=== PATIENT | male | born 1940 | race Caucasian/White ===

== ENCOUNTER → 2018-09-30 | Outpatient (CLI) | payer OTHER, BC ==
[~2018-09-30] MED LIST: ASPIR 8181 MG PO; BACTRIM DS TAB1 EACH PO; BACTROBAN CREAM30 G1 TOP; CLEOCIN HCL150 MG PO; DOXYCYCLINE 10100 MG PO; FOLIC ACID1 MG PO; LOPRESSOR25 PO; MAGOX 400400 MG PO; NORVASC5 MG PO; PERCOCET PO; PLAVIX 75 MG TA75 M1 PO; PRAVACHOL40 MG PO; PREDNISONE 5 MG5 M1 PO; PROBIOTIC1 EAC4 PO; PROMS25 WY RECTAL; PROTONIX40 M1 PO; SINGULAIR 10 MG10 M1 PO; TACROLIMUS1 MG PO; TUMS PO; UNICOMPLEX M TA1 TA1 PO; VITAMIN D50000 UNIT PO; ZYRTEC10 M5 PO
[2018-10-01 08:13] LABS: HEMATOCRIT 36.1 % (42.0-52.0); HEMOGLOBIN 12.4 gm/dL (14.0-18.0); MCH 31.5 pg (26.0-34.0); MCHC 34.3 % (28.0-37.0); RBC 3.94 mil/uL (4.50-6.00); RDW 13.7 % (10.5-14.5); WBC 9.8 thou/uL (4.0-11.0)
[2018-10-01 08:14] LABS: PLATELET COUNT 316 thou/uL (150-400)
[2018-10-01 08:15] LABS: ABSOLUTE NEUTROPHILS 7.6 thou/uL (1.4-8.2)
[2018-10-01 08:16] LABS: CALCIUM 10.9 mg/dL (8.5-10.1); CHLORIDE 99 mmol/L (98-107); SODIUM 138 mmol/L (136-145)
[2018-10-01 08:17] LABS: ANION GAP 18 mmol/L (7-16); BUN 51 mg/dL (7-18); CO2 21 mmol/L (21-32); CREATININE 2.2 mg/dL (0.7-1.3); DIRECT BILIRUBIN < 0.2 mg/dL (<0.1-0.3); GLUCOSE 113 mg/dL (74-106); SGOT 20 U/L (15-37); TOTAL BILIRUBIN 0.2 mg/dL (<0.1-1.0)
[2018-10-01 08:18] LABS: ALBUMIN 4.3 g/dL (3.4-5.0); SGPT 13 U/L (30-65)
[2018-10-01 08:20] LABS: POTASSIUM 6.4 mmol/L (3.5-5.1)
== END ==
LOC: LAB 15:22 → CV 15:22
PROVIDERS: Otolaryngology Plastic Surgery within the Head & Neck
DX: I51.7 Cardiomegaly (principal); J84.9 Interstitial pulmonary disease, unspecified; C44.222 Squamous cell carcinoma of skin of right ear and external auricular canal; C44.42 Squamous cell carcinoma of skin of scalp and neck; J84.10 Pulmonary fibrosis, unspecified; M95.2 Other acquired deformity of head; Z94.2 Lung transplant status; Z95.1 Presence of aortocoronary bypass graft

== ENCOUNTER 2018-10-01 05:17 | Day surgery (SDC) | payer OTHER, BC ==
[~2018-10-01] VITALS: Ht 170.2 cm; Wt 73.9 kg
--- NOTE | ~2018-10-01 | O ---
[facility] [place] [address] OPERATIVE REPORT Name: LUZ MCKINNON Room #: 451-P [facility] M.R.#: [id number] Admission: 10/01/18 Attend Phys: Cuba Vegas MD Discharge: Date of : 38 Report #: [id number] THIS REPORT FOR: //name// CC: Cuba Maldonado MD DATE OF SERVICE: 10/01/2018 PREOPERATIVE DIAGNOSES: 1. Mohs defect right pinna with partial auriculectomy. 2. Mohs defect scalp 2 x 3 cm. 3. Squamous cell carcinoma, right pinna. 4. Squamous cell carcinoma of the scalp. 5. Immunocompromise. 6. History of lung transplant. POSTOPERATIVE DIAGNOSES: 1. Mohs defect right pinna with partial auriculectomy. 2. Mohs defect scalp 2 x 3 cm. 3. Squamous cell carcinoma, right pinna. 4. Squamous cell carcinoma of the scalp. 5. Immunocompromise. 6. History of lung transplant. OPERATION PERFORMED: 1. Myofascial-myocutaneous and cartilage flap reconstruction, right pinna. 2. Full thickness skin graft scalp, 2 x 3 cm, left abdomen to scalp. 3. Complex multilayer closure of laceration, right pinna. 4. Temporoparietal flap rotation for full thickness skin graft bed. INDICATIONS: The patient is a 78-year-old gentleman referred by his Mohs medical territory manager surgeon, Dr. Coleman for definitive reconstruction of a defect resulting in a partial auriculectomy with a wedge-shaped loss of about 1/3-1/2 of the pinna on the right secondary to excision of squamous cell carcinoma. In addition, squamous cell carcinoma of the scalp full thickness 2 x 3 cm loss including pericranium down to bone. 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 There was no time for full workup including CT scan and a PET scan secondary to the need to close these open wounds. The patient had no abnormal adenopathy noted clinically. This will be followed up on further workup. DESCRIPTION OF PROCEDURE: The patient was brought to the operating room and placed supine on the operating table. After adequate general anesthesia was achieved via laryngeal mask anesthesia, he was turned 180 degrees. The [address] [address] OPERATIVE REPORT Name: LUZ MCKINNON ADAMS Room #: [address] [place] [address]..#: [id number] Admission: 10/01/18 Attend Phys: Cuba Vegas MD Discharge: Date of : 38 Report #: [id number] procedure began with takedown of his previous dressings. Examination was made of the resultant defects from his Mohs surgery. The right pinna showed a partial amputation of 1/3-1/2 of the pinna in wedge-shaped excision resulting in loss of most of the superior portion of the pinna helix and a helix and scaphoid fossa. Photographs were taken of the defect. On the scalp, there was a 2 x 3 cm circular full thickness excision including pericranium with exposed skull. The wounds were then cleaned. The patient was then prepped with Betadine in the abdomen and scalp and draped in a sterile fashion. Procedure began with harvest of the skin graft of the left abdomen. The defect was drawn on the abdomen and then extended in a fusiform excision. This was injected with 1% Xylocaine with 1:100,000 epinephrine. Incision was made on the skin, which was harvested and set in a saline rolled gauze on the back table. This was widely undermined and hemostasis with Bovie cautery. This was then closed with interrupted 4-0 Vicryl deep dermal sutures and alejandro on skin. This was dressed with Telfa and a gauze. No drain was needed. The attention was then turned to the scalp defect. Because of the loss of the full thickness pericranium, this required development of a temporoparietal pericranial flap. Wide undermining was undertaken on the scalp, so that I could access the pericranium. This was then harvested in a swirl fashion with incisions laterally on both sides in a pinwheel way, so that these could be rotated into the defect. The pericranium was then developed and then rotated and left pedicled on lateral blood supply. This was then closed with interrupted 5-0 Vicryl giving a vascularized temporoparietal pericranial bed for the graft. Hemostasis was assured with bipolar cautery. At this point, the graft was defatted and left as a full thickness graft. This was inset into the defect, sutured in place with interrupted 4-0 chromic. This was then cut to size to customize the hole as it was the inset. Once this was done, a separate stab incision was made posteriorly in the scalp and carried full thickness, so that a Shagufta drain could be placed to prevent hematoma formation as this was widely undermined. The Xeroform was then placed over the graft followed by cotton ball soaked in mineral oil and the Xeroform tied over itself and a bolster dressing, around the perimeter going large, so that this encompass the area of undermining, 2-0 silk sutures were placed around the scalp. These were then tied over the bolster dressing to hold the skin graft in position. The drain was then sutured to the posterior portion of the bolster dressing. Once this was completed, the gloves were changed and attention was then turned to the ear. Various thoughts were given to reconstruction and I elected to proceed with a development of a fascia-myocutaneous flap utilizing a portion of the ear and posterior scalp accompanied with the cartilage. The previous partial auriculectomy was then developed into a wedge excision. Full thickness cartilage was taken and then the flap both superior and inferior rotated down to the middle. This began with reconstruction of the cartilage first utilizing 3-0 Vicryl to close perichondrium to perichondrium. Once this was closed, then the skin was similarly closed with interrupted 5-0 nylon. Care was taken to oppose the cut edge of the pinna. There was a devascularized portion from the previous surgery that was amputated. The edges were squared and were nicely bleeding. [address] [address] OPERATIVE REPORT Name: LUZ MCKINNON NIKKIE Room #: 451-P [facility] M.R.#: [id number] Admission: 10/01/18 Attend Phys: Cuba Vegas MD Discharge: Date of : 38 Report #: [id number] Hemostasis with bipolar cautery and these were closed with interrupted 4-0 Vicryl deep dermal sutures and then 5-0 nylon on skin. The postauricular incision that had been redeveloped for development of the fasciocutaneous flap was then closed with interrupted 4-0 Vicryl and 5-0 nylon. Complete closure and rotation of this flap allowed for reconstruction of the pinna albeit significantly smaller. The incisions in the scaphoid fossa were as well closed with interrupted 5-0 Vicryl. The patient had an incision inferior in the ear that was a flap approximately 2.5 x 1.5 cm in U shape. This was then elevated and cleaned, it in apparent excision of cartilage. This was then rerotated back into the defect. This laceration was then closed with interrupted 5-0 Vicryl. This measured in total length about 7 cm. Once this was reconstructed, the ear was then irrigated with saline and suctioned down the external auditory canal. The cotton ball soaked in Muri-Lube was then placed into the conchal bowl to hold the previous lacerated skin flap in place. A standard and lateral to this, fluffs were placed followed by an adult Bullock ear dressing. The patient had had previous alejandro in the forehead. The Steri-Strips have been removed and cleaned at the beginning of the procedure. This stapled incision was then redressed with Bactroban and Steri-Strips. The patient was then returned to anesthesia, awake without difficulty, returned to recovery in good condition. Sponge and needle counts were correct. There were no complications. Blood loss was of about 75 mL. The patient will be watched overnight for monitoring secondary to his multiple comorbid problems. Presuming he does well tomorrow, he may be discharged to home with plans to follow with me in 1 week for takedown of the bolster dressing and removal of sutures. Written and verbal discharge instructions have been given to his . DISCHARGE MEDICATIONS: Will include clindamycin 300 mg 1 t.i.d. for 10 days, Phenergan suppository 25 mg 1 per rectum q. 4-6 hours p.r.n., hydrocodone/acetaminophen 7.5/325 one to two q.4-6 hours p.r.n. DISCHARGE INSTRUCTIONS: He was instructed on light activity and a soft diet. He was instructed on water precautions for the bolster dressing. The patient understands. Because of his immunocompromise and because of open wounds, the patient is at increased risk for infection and this will need to be watched closely. Signs and symptoms of infection have been discussed with his . <ELECTRONICALLY SIGNED> By: Cuba Vegas MD 10/02/18 0932 1631 1851 Cuba Vegas MD /nt
--- NOTE | ~2018-10-01 | EKG ---
[place] [address] [facility] [place] [address] ELECTROCARDIOGRAM REPORT Name: PATRICIA MCKINNONDanielito LUNDY Room #: [facility] M..#: [id number] Admission: Attend Phys: Cuba Vegas MD Discharge: Date of : 38 Report #: [id number] THIS REPORT FOR: //name// [facility] Test Date: 2018-09-30 Test Time: 16:10:43 Pat Name: LUZ MCKINNON Department: Room: Gender: Petroleum Engineer: Lucretia SHELTON : 1940 Requested By: Cuba Vegas Order Number: [id number] MD: Mingo Da Silva Measurements Intervals [place] Rate: 55 P: 23 MN: 140 QRS: -4 QRSD: 101 T: 161 QT: 451 QTc: 432 Interpretive Statements Sinus rhythm Low voltage, precordial leads LVH with secondary repolarization abnormality Early transition Nonspecific ST-T wave changes No previous ECG available for comparison Electronically Signed On 09-30-2018 16:59:30 FURNITURE ASSOCIATE by Mingo Da Silva [email or web address] <ELECTRONICALLY SIGNED> By: Mingo Da Silva MD 09/30/18 1659 1610 09 Mingo Da Silva MD /LALO
--- NOTE | ~2018-10-01 | EKG ---
[address] [employer] [place] [address] ELECTROCARDIOGRAM REPORT Name: LUZ MCKINNON Room #: 150-2 [facility]..#: [id number] Admission: 10/01/18 Attend Phys: Cuba Vegas MD Discharge: Date of : 38 Report #: [id number] THIS REPORT FOR: //name// [facility] Test Date: 2018-10-01 Test Time: 12:23:27 Pat Name: LUZ MCKINNON Department: Room: 150 2 Gender: M Gullet Slitter: TODD : 1940 Requested By: Cuba Vegas Order Number: [id number] MD: Mingo D aSilva Measurements Intervals [place] Rate: 57 P: 21 GA: 150 QRS: -3 QRSD: 101 T: 161 QT: 435 QTc: 424 Interpretive Statements Sinus rhythm Occasional ventricular premature complex Voltage criteria for LVH Early transition Compared to ECG 09/30/2018 16:10:43 Ventricular premature complex(es) now present Electronically Signed On 10-01-2018 15:24:28 [employer] SALES [employer]ORAGE MANAGER by Mingo Da Silva [email or web address] <ELECTRONICALLY SIGNED> By: Mingo Da Silva MD 10/01/18 1524 1223 1223 Mingo Da Silva MD /EPI
[~2018-10-01 05:17] MED LIST changes: -BACTRIM DS TAB1 EACH PO; -BACTROBAN CREAM30 G1 TOP; -CLEOCIN HCL150 MG PO; -PROMS25 WY RECTAL
[2018-10-01 12:02] LABS: CREATININE 2.4 mg/dL (0.7-1.3)
[2018-10-01 12:06] LABS: POTASSIUM 5.1 mmol/L (3.5-5.1)
[2018-10-01 12:20] VITALS: BP 148/53
[2018-10-01 18:00] VITALS: BP 165/83
[2018-10-01 18:15] VITALS: BP 174/95
[2018-10-01 18:30] VITALS: BP 168/84
[2018-10-01 19:00] VITALS: BP 172/85
[2018-10-01] MEDS ORDERED: BACTRIM DS TAB1 EACH PO (20:11)
[2018-10-02 00:58] VITALS: BP 137/88
[2018-10-02 04:47] VITALS: BP 129/70
[2018-10-02 05:42] LABS: HEMATOCRIT 34.1 % (42.0-52.0); HEMOGLOBIN 11.3 gm/dL (14.0-18.0); MCH 30.8 pg (26.0-34.0); MCHC 33.3 g/dL (28.0-37.0); MCV 92.5 fL (80.0-100.0); RBC 3.68 mil/uL (4.50-6.00); RDW 15.1 % (10.5-14.5); WBC 14.3 thou/uL (4.0-11.0)
[2018-10-02 05:59] LABS: CALCIUM 8.9 mg/dL (8.5-10.1); CREATININE 1.8 mg/dL (0.7-1.3); POTASSIUM 5.6 mmol/L (3.5-5.1)
[2018-10-02] MEDS ORDERED: PROMS25 WY RECTAL (09:21)
[2018-10-02] MEDS ORDERED: CLEOCIN HCL150 MG PO (09:23)
[2018-10-02] MEDS ORDERED: BACTROBAN CREAM30 G1 TOP (09:27)
[2018-10-02 14:42] VITALS: BP 129/70
== END 2018-10-02 15:06 | disposition home or self-care (01) ==
LOC: OR 05:17 → TBA 05:17 → OR 16:14 → 4W 17:58 → OR 10-02 15:06
PROVIDERS: Otolaryngology Plastic Surgery within the Head & Neck
DX: H61.111 Acquired deformity of pinna, right ear (principal); M95.2 Other acquired deformity of head; C44.222 Squamous cell carcinoma of skin of right ear and external auricular canal; C44.42 Squamous cell carcinoma of skin of scalp and neck; D89.9 Disorder involving the immune mechanism, unspecified; I10 Essential (primary) hypertension; E78.00 Pure hypercholesterolemia, unspecified; N28.9 Disorder of kidney and ureter, unspecified; K21.9 Gastro-esophageal reflux disease without esophagitis; Z94.2 Lung transplant status; Z95.1 Presence of aortocoronary bypass graft; Z98.890 Other specified postprocedural states; Z85.828 Personal history of other malignant neoplasm of skin; Z87.891 Personal history of nicotine dependence; Z90.49 Acquired absence of other specified parts of digestive tract; Z98.41 Cataract extraction status, right eye; Z79.899 Other long term (current) drug therapy; Z87.09 Personal history of other diseases of the respiratory system
CPT/HCPCS: 10047; 50010; 50101; 50386; 50417; 51412; 52220; 56524; 56526; 56527; 56528; 56760; 57006; 62110; 62900; 70005